=== PATIENT | female | born 1945 ===

== ENCOUNTER 2021-07-07 07:59 | Day surgery (SDC) | payer MEDICARE ==
[2021-07-05 15:22] VITALS: BMI 23.6
[2021-07-07] MEDS ORDERED: Lidocaine 1% MPF 2 ML VIAL ONE (08:39)
[2021-07-07] MEDS ORDERED: EPINEPHrine 1 MG/ML AMP ONE (09:29)
[2021-07-07] MEDS ORDERED: Mupirocin 2% Ointment 22 GM Tube ONE (09:29)
[2021-07-07] MEDS ORDERED: Ketorolac Tromethamine 30 MG/ML VIAL ONE (09:33)
[2021-07-07] MEDS ORDERED: Midazolam HCl 2 mg/2 ml Vial ONE (09:33)
[2021-07-07] MEDS ORDERED: PROPOFOL 20 ML ONE (09:33)
[2021-07-07] MEDS ORDERED: Fentanyl 100 MCG/2 ML VIAL ONE (09:33)
[2021-07-07] MEDS ORDERED: Dexamethasone 20 MG/5 ML VIAL ONE (09:33)
[2021-07-07] MEDS ORDERED: Lidocaine 2% PF 5 ML VIAL ONE (09:33)
[2021-07-07] MEDS ORDERED: Rocuronium Bromide 10 MG/ML (10ML VIAL) ONE (09:33)
[2021-07-07] MEDS ORDERED: Ondansetron PF 4 MG/2 ML Vial ONE (09:33)
[2021-07-07] MEDS ORDERED: CEFAZOLIN 1 GM VIAL ONE (09:41)
[2021-07-07] MEDS ORDERED: PHENYLEPHRINE-NS 100 MCG/ML 10 ML SYRINGE ONE (10:02)
[2021-07-07] MEDS ORDERED: Lidocaine 1% w/Epinephrine 1:100K 20 ML VIAL ONE (10:25)
== END 2021-07-07 12:50 | disposition home or self-care (01) ==
LOC: CSHSDC 07:59
PROVIDERS: ATTEND Otolaryngology Plastic Surgery within the Head & Neck
DX: H90.41 Sensorineural hearing loss, unilateral, right ear, with unrestricted hearing on the contralateral side (principal); I10 Essential (primary) hypertension; E78.5 Hyperlipidemia, unspecified
CPT/HCPCS: 69930; 70250; L8614 ×2; J0171; J0690; J1100; J1885; J2001; J2250; J2405; J2704; J3010